=== PATIENT | male | born 1965 | race African-American/Black ===

== ENCOUNTER 2022-09-11 07:21 | Observation (INO) | payer OTHER ==
[2022-09-10 11:57] LABS: BASOPHILS % 0.4 % (0.0-1.0); EOSINOPHILS # (AUTO) 0.1 (0.0-0.4); EOSINOPHILS % 1.2 % (0.0-6.0); HEMATOCRIT 42.9 % (38.2-49.6); LYMPHOCYTES # (AUTO) 3.5 (1.0-3.2); LYMPHOCYTES % 46.2 % (18.0-39.1); MEAN CORPUSCULAR HEMOGLOBIN 30.8 pg (28-32); MEAN CORPUSCULAR HGB CONC 32.6 g/dL (31-35); MEAN CORPUSCULAR VOLUME 94.3 fL (81-99); MONOCYTES # (AUTO) 0.7 (0.2-0.8); MONOCYTES % 9.7 % (4.4-11.3); NEUTROPHILS # (AUTO) 3.2 (2.1-6.9); NEUTROPHILS % 42.2 % (38.7-80.0); PLATELET COUNT 175 x10e3/uL (140-360); RED BLOOD COUNT 4.55 x10e6/uL (4.3-5.7); RED CELL DISTRIBUTION WIDTH 13.2 % (11.7-14.4)
[2022-09-10 12:16] LABS: INR 0.87; PROTHROMBIN TIME 12.3 seconds (11.9-14.5)
[2022-09-10 12:17] LABS: PARTIAL THROMBOPLASTIN TIME 28.2 seconds (23.8-35.5)
[2022-09-10 12:20] LABS: ANION GAP 17.2 mmol/L (8-16); CALCIUM 10.1 mg/dL (8.4-10.2); CREATININE, SERUM 0.95 mg/dL (0.72-1.25); POTASSIUM 4.2 mmol/L (3.5-5.1)
[~2022-09-11] VITALS: Ht 177.8 cm; Wt 87.1 kg
[~2022-09-11 07:21] MED LIST: ABILIFY15 MG PO; ACTOS15 MG PO; ANORO ELLIPTA1 EACH; ASPIRIN81 MG PO; ATORVASTATIN CA80 MG PO; BACLOFEN10 MG PO; CLOPIDOGREL75 MG PO; HUMULIN 70100 UNIT/1 SC; HYDROCODON-ACE1 EAC9 PO; LISINOPRIL2.5 MG PO; METFORMIN HCL500 MG PO; MIRTAZAPINE15 MG PO; OXYBUTYNIN CHLOR5 MG PO; SYNJARDY XR 251 EACH PO; THROMBIN FOR SOLN 5,000 UNIT VIAL ONE; TRIJARDY XR 121 EACH PO; Vancomycin IV 1 GM VIAL ONE
[2022-09-11] MEDS ORDERED: ACETAMINOPHEN 1000 MG/100 ML 100 ML IV ONE (08:34)
[2022-09-11] MEDS ORDERED: LACTATED RINGER'S 1,000 ML ONE (09:08)
[2022-09-11] MEDS ORDERED: CEFAZOLIN SODIUM 2 GM ONE (09:08)
[2022-09-11] MEDS ORDERED: FENTANYL CITRATE/PF 100MCG/2 ML INJ ONE ×2 (11:11→12:49)
[2022-09-11] MEDS ORDERED: OXYCODONE/ACETAMINOPHEN 5-325 1 EACH TABLET PO PRN (12:30)
[2022-09-11] MEDS ORDERED: MAGNESIUM/ALUMINUM/SIMETHICONE 30 ML UDC PO PRN (12:30)
[2022-09-11] MEDS ORDERED: ACETAMINOPHEN 325 MG TAB PO PRN (12:30)
[2022-09-11] MEDS ORDERED: DEXTROSE 50% SYRINGE 50 ML IV PRN (12:30)
[2022-09-11] MEDS ORDERED: CARISOPRODOL 350 MG TAB PO PRN (12:30)
[2022-09-11] MEDS ORDERED: ONDANSETRON HCL INJ 2MG/ML 2ML 2 MG/ML VIAL IV PRN (12:30)
[2022-09-11] MEDS ORDERED: HYDROMORPHONE 2MG/ML 2 MG/ML ML IV PRN ×2 (12:30)
[2022-09-11] MEDS ORDERED: CEPACOL SORE THROAT LOZENGES PO PRN (12:30)
[2022-09-11] MEDS ORDERED: MORPHINE SULFATE 5 MG/ML VIAL IM PRN (12:30)
[2022-09-11] MEDS ORDERED: PROMETHAZINE HCL (IM) 25 MG/ML VIAL IM PRN (12:30)
[2022-09-11] MEDS ORDERED: ZOLPIDEM TARTRATE 5 MG TAB PO PRN (12:30)
[2022-09-11] MEDS ORDERED: HYDROCODON-ACE1 EA12 PO (12:41)
[2022-09-11] MEDS ORDERED: HYDROMORPHONE 1MG/1ML INJ ONE (13:07)
[2022-09-11] MEDS ORDERED: ONDANSETRON HCL INJ 2MG/ML 2ML 2 MG/ML VIAL ONE (13:26)
[2022-09-11] MEDS ORDERED: SEVOFLURANE INHAL SOLN 250 ML PEN BTL ONE (13:26)
[2022-09-11] MEDS ORDERED: DEXAMETHASONE SOD PHOS INJ 4 MG/ML SDV ONE (13:26)
[2022-09-11] MEDS ORDERED: LIDOCAINE HCL 2% LOCAL INJ 5 ML SDV VIAL INJ ONE (13:26)
[2022-09-11] MEDS ORDERED: PROPOFOL IV EMULSION 10 MG/ML 20 ML VIAL ONE (13:26)
[2022-09-11] MEDS ORDERED: POVIDONE IODINE 0.05% 0.05 % ML PO ONE (13:26)
[2022-09-11] MEDS ORDERED: ROCURONIUM BROMIDE 10 MG/ML 5ML VIAL IV ONE (13:26)
[2022-09-11 15:10] VITALS: BP 142/83
[2022-09-11 15:13] VITALS: BP 142/83
[2022-09-11] MEDS: HYDROCODONE/APAP 10MG-325MG TAB PO SCH ×2 (15:39→21:37)
[2022-09-11] MEDS: BACLOFEN 10 MG TAB PO SCH ×2 (15:39→21:37)
[2022-09-11] MEDS: LACTATED RINGER'S 1,000 ML IV SCH ×2 (15:40→21:47)
[2022-09-11 16:38] VITALS: BP 142/83
[2022-09-11] MEDS ORDERED: METFORMIN HCL 500 MG TAB PO SCH (17:00)
[2022-09-11] MEDS: DEXAMETHASONE SOD PHOS INJ 4 MG/ML SDV IV SCH (17:05)
[2022-09-11] MEDS: METFORMIN HCL 500 MG TAB PO SCH (17:06)
[2022-09-11] MEDS: PIOGLITAZONE HCL 15 MG TAB PO SCH ×2 (17:06→21:00)
[2022-09-11] MEDS: HUMULIN 70/30 VIAL SQ SCH (17:08)
[2022-09-11] MEDS: INSULIN LISPRO 100 UNIT/1 ML 3ML VIAL SQ SCH ×2 (17:10→21:46)
[2022-09-11] MEDS ORDERED: DOCUSATE SODIUM 100 MG CAP PO PRN (18:45)
[2022-09-11 20:00] VITALS: BP 140/93
[2022-09-11] MEDS ORDERED: ATORVASTATIN 40 MG TAB PO SCH (21:00)
[2022-09-11] MEDS ORDERED: NON-FORMULARY MEDICATION (Atorvastatin Calcium 80 MG) PO SCH (21:00)
[2022-09-12] VITALS: BP 125/79
[2022-09-12] MEDS: DEXAMETHASONE SOD PHOS INJ 4 MG/ML SDV IV SCH ×3 (01:40→11:40)
[2022-09-12] MEDS: LACTATED RINGER'S 1,000 ML IV SCH (05:12)
[2022-09-12 05:47] VITALS: BP 145/79
[2022-09-12 06:56] VITALS: BP 145/79
[2022-09-12] MEDS: INSULIN LISPRO 100 UNIT/1 ML 3ML VIAL SQ SCH ×2 (07:30→11:54)
[2022-09-12] MEDS: HUMULIN 70/30 VIAL SQ SCH (08:00)
[2022-09-12 08:51] VITALS: BP 140/79
[2022-09-12] MEDS ORDERED: OXYBUTYNIN CHLORIDE XL 5 MG TAB PO SCH (09:00)
[2022-09-12] MEDS ORDERED: ARIPIPRAZOLE 20 MG TAB PO SCH (09:00)
[2022-09-12] MEDS ORDERED: LISINOPRIL 2.5 MG TAB PO SCH (09:00)
[2022-09-12] MEDS ORDERED: ARIPIPRAZOLE 20 MG PO SCH (09:00)
[2022-09-12] MEDS: PIOGLITAZONE HCL 15 MG TAB PO SCH (09:05)
[2022-09-12] MEDS: BACLOFEN 10 MG TAB PO SCH (09:06)
[2022-09-12] MEDS: HYDROCODONE/APAP 10MG-325MG TAB PO SCH (09:07)
[2022-09-12] MEDS: METFORMIN HCL 500 MG TAB PO SCH (09:07)
[2022-09-12 12:00] VITALS: BP 126/54
[2022-09-12] MEDS ORDERED: MIRTAZAPINE 15 MG TAB PO SCH (21:00)
== END 2022-09-12 14:02 | disposition home or self-care (01) ==
LOC: OR 07:21 → PACU V 12:37 → MED/SURG 14:59
PROVIDERS: ADMIT Neurological Surgery; ATTEND Neurological Surgery
DX: M50.01 Cervical disc disorder with myelopathy, high cervical region (principal); Z01.818 Encounter for other preprocedural examination; Z20.822 Contact with and (suspected) exposure to COVID-19; I25.10 Atherosclerotic heart disease of native coronary artery without angina pectoris
CPT/HCPCS: 0223U; 20931; 22551; 22845; 36415 ×3; 71046; 72040; 76000; 80048; 82948 ×2; 85025; 85610; 85730; 86850; 86900; 88304; 88311; 93005; 97116 ×2; 97161; C1713 ×3; G0378 ×2; J0131; J0690 ×2; J1100 ×2; J1170; J2001; J2405; J2704; J3010; J3370; J7121

== ENCOUNTER → 2022-10-09 | Outpatient (CLI) | payer OTHER ==
[~2022-10-09] MED LIST changes: +HYDROCODON-ACE1 EA12 PO; -THROMBIN FOR SOLN 5,000 UNIT VIAL ONE; -Vancomycin IV 1 GM VIAL ONE
== END ==
LOC: RAD 11:22
PROVIDERS: ATTEND Neurological Surgery
DX: M50.20 Other cervical disc displacement, unspecified cervical region (principal); M43.22 Fusion of spine, cervical region
CPT/HCPCS: 72050